=== PATIENT | female | born 2000 | race Caucasian/White ===

== ENCOUNTER 2019-07-18 02:17 | Emergency (ER) | payer OTHER ==
[~2019-07-18] VITALS: Ht 170.2 cm; Wt 61.2 kg
[2019-07-18 02:27] VITALS: BP 130/94
== END 2019-07-18 03:46 | disposition home or self-care (01) ==
LOC: ED 03:40
DX: M79.5 Residual foreign body in soft tissue (principal)
CPT/HCPCS: 99281

== ENCOUNTER 2020-08-29 01:28 | Emergency (ER) | payer OTHER ==
[~2020-08-29] VITALS: Ht 175.3 cm; Wt 62.9 kg
--- NOTE | 2020-08-29 02:04 | NUR ---
Provider and RN at bedside.
[2020-08-29] MEDS ORDERED: ONDANSETRON ODT 4 MG ONE (02:12)
--- NOTE | 2020-08-29 02:29 | NUR ---
Pt refusing chest XR and blood work- provider aware.
[2020-08-29] MEDS ORDERED: ONDANSETRON ODT 4 MG PO ONE ×2 (02:30)
[2020-08-29 02:49] VITALS: BP 138/83
== END 2020-08-29 03:14 | disposition home or self-care (01) ==
LOC: ED 03:10
DX: R06.00 Dyspnea, unspecified (principal); R11.2 Nausea with vomiting, unspecified; R42 Dizziness and giddiness; F41.9 Anxiety disorder, unspecified
CPT/HCPCS: 93005; 99283; Q0162